=== PATIENT | female | born 1970 | race American Indian/Alaskan Native ===

== ENCOUNTER 2017-07-12 19:37 | Emergency (ER) | payer BC, MEDICAID ==
[2017-07-12 19:50] VITALS: RESP 16; O2SAT 100
[2017-07-12] MEDS ORDERED: Naproxen 500 MG TAB PO STA (20:22)
[2017-07-12] MEDS ORDERED: Naproxen 500 MG TAB PO ONE (20:44)
--- NOTE | 2017-07-12 21:24 | ED PDOC ---
Upper Extremity Pain/Injury Time Seen by Provider: 07/12/17 19:55 Chief Complaint (Nursing): Upper Extremity Problem/Injury Chief Complaint (Provider): Upper Extremity Problem/Injury History Per: Patient History/Exam Limitations: no limitations Onset/Duration Of Symptoms: Days (one month) Current Symptoms Are (Timing): Still Present Quality: "Pain" Additional Complaint(s): 46 y/o female with a history of bronchitis presents to the ED with left arm pain. Patient states pain began one month ago and has worsened over time. Pain extends from the left forearm to the elbow. She complains of a tingling sensation at times along with intermittent neck pain. Patient denies any weakness of the left arm. Of note, she did not ingest any anti-inflammatory mediation. 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 PMD: [employer] providers Past Medical History Reviewed: Historical Data, Nursing Documentation, Vital Signs Vital Signs: Last Vital Signs Temp 98.2 F 07/12/17 19:46 Pulse 85 07/12/17 19:46 Resp 16 07/12/17 19:46 BP 128/86 07/12/17 19:46 Pulse Ox 100 07/12/17 19:46 - Medical History PMH: Bronchitis Denies: HIV, Chronic Kidney Disease - Surgical History Surgical History: No Surg Hx - Family History Family History: States: No Known Family Hx - Social History Current smoker - smoking cessation education provided: Yes Ex-Smoker (has not smoked in the last 12 months): No Alcohol: Occasional Drugs: Denies - Immunization History Hx Tetanus Toxoid Vaccination: Yes - Home Medications Home Medications: Ambulatory Orders Medication Instructions Recorded Albuterol HFA [Ventolin HFA 90 2 puff IH [id number] #1 puff 05/26/15 mcg/actuation (8 g)] Amoxicillin/Clavulanate [Augmentin 1 tab PO BID 7 Days tab 05/26/15 875 MG-125 MG] Azithromycin [Zithromax] 250 mg PO DAILY 4 Days tab 05/26/15 Azithromycin [Zithromax] 500 mg PO DAILY 1 Days tablet 05/26/15 Methylprednisolone [Medrol Dose 4 mg PO DAILY #21 mg 05/26/15 Pack (21 tabs)] Multivitamin [Multi-Vitamin Daily] 1 tab PO DAILY 05/26/15 Naproxen [Naprosyn] 500 mg PO Q12 #14 tab 07/12/17 - Allergies Allergies/Adverse Reactions: Allergies Allergy/AdvReac Type Severity Reaction Status Date / Time No Known Allergies Allergy Verified 07/12/17 19:46 Review of Systems ROS Statement: Except As Marked, All Systems Reviewed And Found Negative Constitutional: Negative for: Weakness (to left arm) Musculoskeletal: Positive for: Neck Pain, Arm Pain (left), Other (tingling) Physical Exam - Reviewed Nursing Documentation Reviewed: Yes Vital Signs Reviewed: Yes - Physical Exam Appears: Positive for: No Acute Distress Head Exam: Positive for: ATRAUMATIC, NORMAL INSPECTION, NORMOCEPHALIC Skin: Positive for: Normal Color, Warm, Dry Eye Exam: Positive for: EOMI, Normal appearance, PERRL ENT: Positive for: Normal ENT Inspection Neck: Positive for: Normal, Painless ROM, Supple Cardiovascular/Chest: Positive for: Regular Rate, Rhythm. Negative for: Murmur Respiratory: Positive for: Normal Breath Sounds. Negative for: Respiratory Distress Gastrointestinal/Abdominal: Positive for: Normal Exam, Soft Back: Positive for: L CVA Tenderness. Negative for: R CVA Tenderness, Vertebral Tenderness Extremity: Positive for: Tenderness (mild tenderness to the left forearm, elicited upon supination of the left arm), Other (edema over the tendents of the forearm). Negative for: Pedal Edema, Deformity Neurologic/Psych: Positive for: Alert, Oriented (x3). Negative for: Motor/ Sensory Deficits - ECG O2 Sat by Pulse Oximetry: 100 (RA) Pulse Ox Interpretation: Normal Medical Decision Making Medical Decision Making: Time: 19:46 Impression: 46 y/o female with left upper extremity pain, non-traumatic exam consistent with tendonitis or radiculopathy. Initial Plan: * Test * Naproxen 500 mg PO * Left Arm X-Ray 21:50 Both x-rays showed no fracture or dislocation of the left forearm or elbow. Patient is stable for discharge and going home with Naproxen. Patient to follow- up with Dr. Main. Diagnosis is tendonitis of the left forearm and radiculopathy. Scribe Attestation: Documented by Adriana Oliva acting as a scribe for Jeramie Jones MD. MD Saunders Attestation: All medical record entries made by the Scribe were at my direction and personally dictated by me. I have reviewed the chart and agree that the record accurately reflects my personal performance of the history, physical exam, medical decision making, and the department course for this patient. I have also personally directed, reviewed, and agree with the discharge instructions and disposition. Disposition - Clinical Impression Clinical Impression: Tendonitis of elbow or forearm, Radiculopathy affecting upper extremity - Disposition Referrals: Fletcher Main MD [Staff Provider] - Disposition: Routine/Home Disposition Time: 21:00 Condition: STABLE Prescriptions: Naproxen [Naprosyn] 500 mg PO Q12 #14 tab Instructions: Tendonitis, Radiculopathy Forms: [employer] (Chinese)
[2017-07-12 21:58] VITALS: BP 115/66; PULSE 71; TEMP 98
--- NOTE | 2017-07-13 09:11 | RAD ---
PROCEDURE: Radiographs of the left elbow. HISTORY: pain COMPARISON: No prior. FINDINGS: BONES: Normal. No fracture. JOINTS: Normal. No osteoarthritis. SOFT TISSUES: Normal. JOINT EFFUSION: None. OTHER FINDINGS: None IMPRESSION: Unremarkable radiographs of the left elbow.
--- NOTE | 2017-07-13 09:11 | RAD ---
PROCEDURE: Radiographs of the Left Forearm HISTORY: pain COMPARISON: None available. TECHNIQUE: Frontal and lateral views obtained. FINDINGS: BONES: No fracture or destructive lesion. JOINT SPACES: Unremarkable. OTHER FINDINGS: None. IMPRESSION: Unremarkable radiographs of the left forearm.
== END 2017-07-12 21:59 | disposition home or self-care (01) ==
LOC: H.ER 19:37
DX: M65.232 Calcific tendinitis, left forearm (principal); M54.12 Radiculopathy, cervical region